=== PATIENT | female | born 1995 | race Caucasian/White ===

== ENCOUNTER 2024-07-27 14:34 | Outpatient (CLI) | payer OTHER | END 2024-07-27 14:35 | disposition home or self-care (01) | LOC: CSHULT 14:34 | PROVIDERS: ATTEND Family Medicine | DX: Z34.92 Encounter for supervision of normal pregnancy, unspecified, second trimester (principal); Z3A.14 14 weeks gestation of pregnancy | CPT/HCPCS: 76815 ==

== ENCOUNTER 2024-07-30 05:54 | Inpatient (IN) | payer SELFPAY ==
[2024-07-30] MEDS ORDERED: Butorphanol Tartrate 1 MG/ML VIAL SLOW IVP PRN (07:50)
[2024-07-30] MEDS ORDERED: hydrALAZINE 20 MG/ML VIAL SLOW IVP PRN (07:50)
[2024-07-30] MEDS ORDERED: Promethazine HCl 25 MG/ML VIAL IM PRN (07:50)
[2024-07-30] MEDS ORDERED: Carboprost 250 MCG/ML AMP IM PRN (07:50)
[2024-07-30 08:14] LABS: Hematocrit 36.4 % (34.9-44.5); Hemoglobin 12.5 g/dL (12.0-15.5); Mean Corpuscular HGB CONC 34.3 g/dL (32.0-36.0); Mean Corpuscular Hemoglobin 30.5 pg (27.0-33.0); Mean Corpuscular Volume 88.8 fL (81.6-98.3); Mean Platelet Volume 8.6 fL (7.4-10.4); Platelet Count 232 10x3/uL (150-450); RBC Distribution Width 12.8 % (11.5-14.5); White Blood Cell (WBC) Count 7.7 10x3/uL (3.5-10.5)
[2024-07-30 08:42] LABS: Syphilis Antibody Nonreactive (Nonreactive); Syphilis Antibody Index 0.04 S/CO (<1.00 Non-Reactive)
[2024-07-30 08:45] LABS: HBsAg Index 0.21 S/CO (0-0.99); HIV (1/2) Antibody/Antigen Non-Reactive (NonReactive); HIV 1/2 INDEX 0.11 S/CO (<1.00); Hep B Surf Ag - L&D Non-Reactive S/CO (NonReactive)
[2024-07-30] MEDS: Misoprostol 200 MCG TAB VAG SCH (13:03)
[2024-07-30 16:27] VITALS: TEMP 101
[2024-07-30] MEDS: Acetaminophen 500 MG TAB PO SCH (16:27)
[2024-07-30] MEDS: Diphenoxylate HCl/Atropine Tablet PO PRN (17:08)
[2024-07-30] MEDS ORDERED: Misoprostol 200 MCG TAB ONE (17:42)
[2024-07-30] MEDS ORDERED: fentaNYL 50 mcg/mL 1 mL Vial ONE (17:46)
[2024-07-30] MEDS: Ondansetron PF 4 MG/2 ML Vial IVP PRN (17:51)
== END 2024-07-30 22:25 | disposition home or self-care (01) | DRG 779 ==
LOC: CSHLD 05:54
PROVIDERS: ADMIT Family Medicine; ATTEND Family Medicine
PROC: 10E0XZZ Delivery of Products of Conception, External Approach (ICD-10-PCS; principal; 2024-07-30)
DX: O02.1 Missed abortion (principal); Z3A.15 15 weeks gestation of pregnancy; Z88.0 Allergy status to penicillin
CPT/HCPCS: 36415; 85027; 86780; 86850; 86900; 86901; 87340; 87389; 88300; 88305; 88341; 88342; J2405

== ENCOUNTER 2025-05-05 04:09 | Day surgery (SDC) | payer SELFPAY ==
[2025-05-05 04:24] VITALS: BMI 26.9
[2025-05-05] MEDS: Ondansetron PF 4 MG/2 ML Vial IVP SCH (05:41)
[2025-05-05 05:57] LABS: Glucose, Urine (Dipstick) Normal (Negative); Leukocyte Negative (Negative); Protein, Urine (Dipstick) Negative (Neg-Trace); Specific Gravity, Urine 1.020 (1.005-1.030)
[2025-05-05 06:05] LABS: #Basophils Less than 0.03 10x3/uL (0.0-0.2); #Eosinophils Less than 0.03 10x3/uL (0.0-0.5); #Monocytes 0.48 10x3/uL (0.0-1.1); #Neutrophils 7.49 10x3/uL (1.5-8.4); %Basophils 0.2 % (0.0-2.0); %Eosinophils 0.2 % (0.0-6.0); %Lymphocytes 14.1 % (18.0-47.0); %Monocytes 5.1 % (0.0-10.0); %Neutrophils 79.4 % (40.0-75.0); Hematocrit 32.1 % (34.9-44.5); Hemoglobin 10.8 g/dL (12.0-15.5); Mean Corpuscular Hemoglobin 30.6 pg (27.0-33.0); Mean Corpuscular Volume 90.9 fL (81.6-98.3); Platelet Count 186 10x3/uL (150-450); Red Blood Cell (RBC) Count 3.53 10x6/uL (3.90-5.03); White Blood Cell (WBC) Count 9.43 10x3/uL (3.5-10.5)
[2025-05-05 06:13] LABS: Bacteria/HPF Rare-Few HPF (None Seen); CAUTI Indications for Culture Pregnancy; RBC/HPF 0-3 HPF (0-3); WBC/HPF 0-3 HPF (0-3)
[2025-05-05 06:15] LABS: Urine Culture Reflex Yes Yes
[2025-05-05] MEDS: Cyclobenzaprine 10 MG TAB PO SCH (06:23)
[2025-05-05 06:28] LABS: ALT (SGPT) 12 U/L (Less than 34); AST (SGOT) 23 U/L (11-34); Albumin 3.1 g/dL (3.1-4.5); Alkaline Phosphatase 36 U/L (40-110); Anion Gap 15 mmol/L (10-20); BUN (Urea Nitrogen) 10 mg/dL (7.0-18.7); Bilirubin, Total 0.2 mg/dL (0.3-1.2); Calc. Creatinine Clearance 125 mL/min (70-130); Calcium 7.9 mg/dL (7.8-10.44); Carbon Dioxide 19 mmol/L (22-29); Chloride 109 mmol/L (98-107); Globulin 2.9 g/dL (2.4-3.5); Glucose 95 mg/dL (70-105); Potassium 3.6 mmol/L (3.5-5.1); Sodium 139 mmol/L (136-145)
[2025-05-05 07:04] LABS: Fetal Membranes Rupture No Membranes Rupture (No Rupture)
== END 2025-05-05 08:30 | disposition home or self-care (01) ==
LOC: CSHLD/OP 04:09
PROVIDERS: ATTEND Family Medicine
DX: Z03.71 Encounter for suspected problem with amniotic cavity and membrane ruled out (principal); O23.42 Unspecified infection of urinary tract in pregnancy, second trimester; N39.0 Urinary tract infection, site not specified; Z3A.22 22 weeks gestation of pregnancy; Z88.0 Allergy status to penicillin; Z79.82 Long term (current) use of aspirin
CPT/HCPCS: 76770; 76817; 80053; 81001; 84112; 85025; 87086; 87480; 87510; 87660; 96360; 96361; 96375; 99285; J2405

== ENCOUNTER 2025-08-26 04:25 | Inpatient (IN) | payer SELFPAY ==
[2025-08-26] MEDS ORDERED: Carboprost 250 MCG/ML AMP IM PRN (05:00)
[2025-08-26] MEDS ORDERED: Ondansetron PF 4 MG/2 ML Vial IVP PRN (05:00)
[2025-08-26] MEDS ORDERED: Diphenoxylate HCl/Atropine Tablet PO PRN ×2 (05:00)
[2025-08-26] MEDS ORDERED: Tranexamic Acid 1,000 MG/10 ML VIAL IVP PRN (05:00)
[2025-08-26] MEDS ORDERED: Lidocaine 1% (PF) 30 ML VIAL SC PRN (05:00)
[2025-08-26] MEDS ORDERED: hydrALAZINE 20 MG/ML VIAL SLOW IVP PRN ×2 (05:00→07:06)
[2025-08-26] MEDS ORDERED: Methylergonovine 0.2 MG/ML VIAL IM PRN (05:00)
[2025-08-26] MEDS: Oxytocin 30 units/NS 500 ML 500 ML IV SCH (05:06)
[2025-08-26 05:43] LABS: Hematocrit 39.6 % (34.9-44.5); Hemoglobin 13.8 g/dL (12.0-15.5); Mean Corpuscular Hemoglobin 30.3 pg (27.0-33.0); Mean Corpuscular Volume 86.8 fL (81.6-98.3); Platelet Count 216 10x3/uL (150-450); Red Blood Cell (RBC) Count 4.56 10x6/uL (3.90-5.03); White Blood Cell (WBC) Count 9.80 10x3/uL (3.5-10.5)
[2025-08-26 06:15] LABS: Hep B Surf Ag Non-Reactive S/CO (NonReactive)
[2025-08-26 06:18] LABS: Syphilis Antibody Index 0.05 S/CO (<1.00 Non-Reactive)
[2025-08-26 06:41] VITALS: BMI 25.7
[2025-08-26] MEDS: Ibuprofen 800 MG TAB PO PRN (07:04)
[2025-08-26] MEDS ORDERED: Bisacodyl 10 MG SUPP PR PRN (07:06)
[2025-08-26] MEDS ORDERED: Milk Of Magnesia 30 ML UDCUP PO PRN (07:06)
[2025-08-26] MEDS: Ferrous Sulfate 325 MG TAB PO SCH (08:46)
[2025-08-26] MEDS: Ibuprofen 800 MG TAB PO SCH (13:45)
[2025-08-26 20:17] VITALS: TEMP 98.2
[2025-08-27 05:23] LABS: #Basophils Less than 0.03 10x3/uL (0.0-0.2); #Eosinophils 0.05 10x3/uL (0.0-0.5); #Monocytes 0.53 10x3/uL (0.0-1.1); #Neutrophils 5.05 10x3/uL (1.5-8.4); %Basophils 0.3 % (0.0-2.0); %Eosinophils 0.6 % (0.0-6.0); %Lymphocytes 27.9 % (18.0-47.0); %Monocytes 6.6 % (0.0-10.0); %Neutrophils 63.3 % (40.0-75.0); Hematocrit 32.7 % (34.9-44.5); Hemoglobin 11.2 g/dL (12.0-15.5); Mean Corpuscular Hemoglobin 30.2 pg (27.0-33.0); Mean Corpuscular Volume 88.1 fL (81.6-98.3); Platelet Count 181 10x3/uL (150-450); Red Blood Cell (RBC) Count 3.71 10x6/uL (3.90-5.03); White Blood Cell (WBC) Count 7.98 10x3/uL (3.5-10.5)
[2025-08-27 08:30] VITALS: BP 117/56
== END 2025-08-27 12:05 | disposition home or self-care (01) | DRG 806 ==
LOC: CSHERS 04:25 → CSHLD 04:53 → CSHPP 07:20
PROVIDERS: ADMIT Family Medicine; ATTEND Family Medicine
PROC: 4A1HXCZ Monitoring of Products of Conception, Cardiac Rate, External Approach (ICD-10-PCS; principal; 2025-08-26)
PROC: 10907ZC Drainage of Amniotic Fluid, Therapeutic from Products of Conception, Via Natural or Artificial Opening (ICD-10-PCS; principal; 2025-08-26)
PROC: 10E0XZZ Delivery of Products of Conception, External Approach (ICD-10-PCS; principal; 2025-08-26)
PROC: 0UQGXZZ Repair Vagina, External Approach (ICD-10-PCS; principal; 2025-08-26)
DX: O77.0 Labor and delivery complicated by meconium in amniotic fluid (principal); O71.4 Obstetric high vaginal laceration alone; Z37.0 Single live birth; O62.3 Precipitate labor; Z3A.38 38 weeks gestation of pregnancy; Z88.0 Allergy status to penicillin; Z79.899 Other long term (current) drug therapy
CPT/HCPCS: 36415; 85025; 85027; 86780; 86850; 86900; 86901; 87340; 99285; J2590; J3010